=== PATIENT | male | born 2005 | race Two or more races ===

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

== ENCOUNTER 2024-12-07 12:59 | Emergency (ER) | payer MEDICAID, OTHER ==
[~2024-12-07] VITALS: Ht 162.6 cm; Wt 70.5 kg
[2024-12-07 13:24] VITALS: BP 150/102; PULSE 77; RESP 16; TEMP 98.5; O2SAT 98
[2024-12-07] MEDS: SODIUM CHLORIDE 0.9% 1,000 ML IV ONE (15:00)
[2024-12-07] MEDS: KETOROLAC TROMETHAMINE 30 MG/ML VIAL IVP ONE (15:00)
[2024-12-07] MEDS: IBUPROFEN 600 MG TABLET PO ONE (15:14)
== END 2024-12-07 15:56 | disposition left against medical advice (07) ==
LOC: EMS 12:59
DX: R10.A1 Flank pain, right side (principal); M54.9 Dorsalgia, unspecified; F12.90 Cannabis use, unspecified, uncomplicated
CPT/HCPCS: 99283

== ENCOUNTER → 2025-01-14 | Emergency (ER) | payer SELFPAY ==
[~2025-01-14] VITALS: Ht 167.6 cm; Wt 59.1 kg
[2025-01-14 15:00] VITALS: BP 134/101; PULSE 94; RESP 16; TEMP 97.5; O2SAT 100
== END | disposition still patient (30) ==
LOC: EMS 15:06
DX: R11.10 Vomiting, unspecified (principal); Z53.21 Procedure and treatment not carried out due to patient leaving prior to being seen by health care provider